=== PATIENT | male | born 1950 | race Caucasian/White ===

== ENCOUNTER → 2024-04-14 07:25 | Outpatient (REF) | payer MEDICARE, OTHER, SELFPAY | LOC: RAD 07:25 | PROVIDERS: ATTENDING PHYSICIAN Urology; FAMILY PHYSICIAN Family Medicine | DX: N13.70 Vesicoureteral-reflux, unspecified (principal); Z85.46 Personal history of malignant neoplasm of prostate; Z85.51 Personal history of malignant neoplasm of bladder | CPT/HCPCS: 74178; Q9967 ==

== ENCOUNTER → 2025-05-05 08:23 | Outpatient (REF) | payer MEDICARE, OTHER, SELFPAY | LOC: RAD 08:23 | PROVIDERS: ATTENDING PHYSICIAN Urology; FAMILY PHYSICIAN Family Medicine | DX: N13.70 Vesicoureteral-reflux, unspecified (principal); Z85.46 Personal history of malignant neoplasm of prostate; Z85.51 Personal history of malignant neoplasm of bladder | CPT/HCPCS: 74178; Q9967 ==